=== PATIENT | male | born 1970 | race Hispanic/Latino ===

== ENCOUNTER 2020-08-19 08:15 | Emergency (ER) | payer OTHER ==
[2020-08-19] MEDS ORDERED: Fentanyl 100 MCG/2 ML VIAL ONE (11:15)
[2020-08-19] MEDS ORDERED: Boostrix 0.5 ML (Tdap) VIAL ONE (12:06)
== END 2020-08-19 13:10 | disposition home or self-care (01) ==
LOC: ERS 08:15
DX: S81.012A Laceration without foreign body, left knee, initial encounter (principal); I10 Essential (primary) hypertension; E11.9 Type 2 diabetes mellitus without complications; Z79.84 Long term (current) use of oral hypoglycemic drugs; Z79.899 Other long term (current) drug therapy; Z23 Encounter for immunization; V48.4XXA Person boarding or alighting a car injured in noncollision transport accident, initial encounter; Y92.410 Unspecified street and highway as the place of occurrence of the external cause
CPT/HCPCS: 90471; 90715; 96365; 96375; J0690; J3010

== ENCOUNTER 2022-10-02 15:17 | Outpatient (CLI) | payer OTHER, MEDICAID | END 2022-10-02 15:18 | disposition home or self-care (01) | LOC: ULT 15:17 | PROVIDERS: ATTEND Internal Medicine Nephrology | DX: N18.30 Chronic kidney disease, stage 3 unspecified (principal) | CPT/HCPCS: 76770 ==

== ENCOUNTER 2022-10-29 08:31 | Day surgery (SDC) | payer OTHER, MEDICAID ==
[2022-10-13 15:24] VITALS: BMI 36.0
[~2022-10-29 08:31] MED LIST: EPINEPHrine 0.3 MG, Dextrose 50% 3 ML in Ophthalmic Irrigation Solution 500 ML IRR SCH
[2022-10-29] MEDS ORDERED: PHENYLephrine 2.5% Ophth Soln 15 ml Bottle ONE (09:29)
[2022-10-29] MEDS ORDERED: Cyclopentolate 2% Opth Drop 15 ML BOT ONE (09:29)
[2022-10-29] MEDS ORDERED: fentaNYL 50 mcg/mL 1 mL Vial ONE (10:58)
[2022-10-29] MEDS ORDERED: PROPOFOL 20 ML ONE (11:02)
[2022-10-29] MEDS ORDERED: Triamcinolone 40 MG/ML VIAL ONE (11:14)
[2022-10-29] MEDS ORDERED: CEFAZOLIN 1 GM VIAL ONE (11:14)
[2022-10-29] MEDS ORDERED: Maxitrol 0.1% Opth Oint 3.5 GM TUBE ONE (11:14)
[2022-10-29] MEDS ORDERED: Lidocaine 1% PF 5 ML VIAL ONE (11:14)
[2022-10-29] MEDS ORDERED: PROPOFOL 200 MG/20 ML VIAL ONE (11:14)
[2022-10-29] MEDS ORDERED: Bupivacaine 0.75% 10 ML VIAL ONE (11:14)
[2022-10-29] MEDS ORDERED: Lidocaine 4% PF 5 ML AMP ONE (11:14)
== END 2022-10-29 13:30 | disposition home or self-care (01) ==
LOC: SDC 08:31
PROVIDERS: ATTEND Ophthalmology Retina Specialist
PROC: 08T53ZZ Resection of Left Vitreous, Percutaneous Approach (ICD-10-PCS; principal; 2022-10-29)
DX: H33.42 Traction detachment of retina, left eye (principal)
CPT/HCPCS: 67113; J3010; J0171; J0690; J2704; J3301; J3490